=== PATIENT | male | born 1980 | race Caucasian/White ===

== ENCOUNTER → 2019-08-07 15:48 | Outpatient (CLI) | payer OTHER, SELFPAY | PROVIDERS: Visit Provider Physician Assistant | DX: J02.9 Acute pharyngitis, unspecified (principal) | CPT/HCPCS: 87070 ==

== ENCOUNTER → 2023-04-29 10:44 | Outpatient (CLI) | payer OTHER, SELFPAY ==
--- NOTE | 2023-04-29 | DI.US.S_ITS ---
PROCEDURE: US ABDOMEN COMPLETE INDICATIONS: ABDOMINAL PAIN TECHNIQUE: Real-time scanning was performed of the abdominal and retroperitoneal organs, with image documentation. COMPARISON: None. FINDINGS: Liver: Liver is normal in size and homogeneous in echotexture. Gallbladder: Nondilated. No stones or sludge. Gallbladder polyp near the fundus measuring at 0.4 cm. Normal gallbladder wall thickness. No pericholecystic fluid. Negative sonographic Peraza's sign. Biliary ducts: Intrahepatic bile ducts are non-dilated. Extrahepatic bile duct caliber measures 2 mm. Normal is 6-7 mm or less in diameter, or 10 mm or less post-cholecystectomy. Pancreas: Visualized portions of the pancreas are sonographically normal. Spleen: Spleen is normal in size and homogeneous in echotexture. Measures 7.2 cm. Kidneys: Kidneys are normal in size and echotexture. Right kidney measures 10.2 cm long; left kidney measures 10.1 cm long. No hydronephrosis. Echogenic foci within the kidneys most consistent with kidney stones. Largest on the right measures 0.9 cm. Largest on the left measures 1 cm. No solid masses. Aorta: Visualized aorta is normal in caliber at less than 3 cm. Iliacs: Proximal common iliac arteries are normal in caliber at less than 2.5 cm. IVC: Intrahepatic inferior vena cava is patent. Miscellaneous: No free abdominal fluid. No inguinal hernia seen. IMPRESSION: 1. No acute cholecystitis. 2. Benign gallbladder polyp measuring 0.4 cm. No further follow-up required. 3. No hydronephrosis. Bilateral kidney stones suspected. Consider CT KUB for further evaluation. Dictated by: Javan Kenney M.D. on 04/29/2023 at 12:27 Approved by: Javan Kenney M.D. on 04/29/2023 at 12:31
== END ==
PROVIDERS: Referring Provider Physician Assistant; Visit Provider Physician Assistant
DX: K82.4 Cholesterolosis of gallbladder (principal); R10.30 Lower abdominal pain, unspecified
CPT/HCPCS: 76700